=== PATIENT | female | born 1950 | race Caucasian/White ===

== ENCOUNTER → 2019-05-31 10:04 | Outpatient (CLI) | payer MEDICARE, OTHER, SELFPAY ==
--- NOTE | 2019-05-31 10:13 | DI.RAD.S_ITS ---
PROCEDURE: XR TIBIA FUBULA RT 2V INDICATIONS: pain in right lower leg, foot and right toe after fall TECHNIQUE: 2 views of the tibia and fibula were acquired. COMPARISON: None. FINDINGS: Bones: No acute fractures or dislocations. No suspicious bony lesions. Degenerative changes of the right knee are noted. Soft tissues: No suspicious soft tissue calcifications or masses. IMPRESSION: Right tibia/fibula without acute fracture or malalignment. Degenerative changes of the right knee. If there is persistent clinical concern for occult fracture given adequate mechanism of injury, consider repeat imaging in 10-14 days. Dictated by: Patrick Saleh M.D. on 05/31/2019 at 9:32 Approved by: Patrick Saleh M.D. on 05/31/2019 at 9:33
--- NOTE | 2019-05-31 10:13 | DI.RAD.S_ITS ---
PROCEDURE: XR FOOT RT MIN 3V INDICATIONS: pain in right lower leg, foot and right toe after fall TECHNIQUE: 3 views of the foot were acquired. COMPARISON: None. FINDINGS: Bones: No acute fractures or dislocations. Degenerative changes of the first toe metatarsophalangeal joint and second toe distal interphalangeal joint. Prominent retrocalcaneal spur. No suspicious bony lesions. Soft tissues: No tibiotalar joint effusion. Achilles tendon appears normal. IMPRESSION: Right foot without acute fracture or malalignment. Degenerative changes of the right first metatarsophalangeal joint and second distal interphalangeal joint. Prominent retrocalcaneal spurring. If there is persistent clinical concern for occult fracture given adequate mechanism of injury, consider repeat imaging in 10-14 days. Dictated by: Patrick Saleh M.D. on 05/31/2019 at 9:30 Approved by: Patrick Saleh M.D. on 05/31/2019 at 9:32
== END ==
PROVIDERS: PCP Physician Assistant Medical; Visit Provider Physician Assistant
DX: M79.661 Pain in right lower leg (principal); M79.671 Pain in right foot; M79.674 Pain in right toe(s); M77.31 Calcaneal spur, right foot
CPT/HCPCS: 73590; 73630

== ENCOUNTER 2023-05-21 10:07 | Emergency (ER) | payer MEDICARE, OTHER, SELFPAY ==
[2023-05-21] VITALS (10 sets, daily range): BP systolic 122–146; BP diastolic 63–81; PULSE 68–93; RESP 14–18; TEMP 36.1; O2SAT 96–100; BMI 21.6
--- NOTE | 2023-05-21 10:36 | DI.RAD.S_ITS ---
PROCEDURE: XR ABDOMEN MIN 2V INDICATIONS: constipation intermittent, better today TECHNIQUE: 2 views of the abdomen were acquired. COMPARISON: None. FINDINGS: Surgical changes and devices: None. Bowel: No pneumoperitoneum. The bowel gas pattern is non obstructed. Moderate amount of stool in colon. Soft tissues: No masses; visualized solid organ contours appear normal in size. No suspicious abdominal calcifications. Bones: No suspicious bony abnormalities. IMPRESSION: Moderate amount of stool in colon. Dictated by: Elly Wylie M.D. on 05/21/2023 at 12:01 Approved by: Elly Wylie M.D. on 05/21/2023 at 12:02
--- NOTE | 2023-05-21 13:03 | ED_ITS ---
HPI - Abdominal Pain <Mayela Dutta PA-C - Last Filed: 05/27/23 16:46> General Chief Complaint: Abdominal Pain Stated Complaint: lower abdominal pain, constipation 2 months Time Seen by Provider: 05/21/23 10:36 Mode of arrival: Ambulatory History of Present Illness HPI narrative: 72-year-old female with no reported past medical history presents to the ED with 2 months of constipation, lower abdominal pain. Patient states that over the l ast 2 months patient has not been able to have a bowel movement normally without the aid of of magnesia. Patient states that she experiences significant gas pains and is forced to use the milk of magnesia to relieve the pain and have a bowel movement. Patient states that she had a colonoscopy about 2 months ago, diagnosed with 2 polyps but otherwise unremarkable. Patient denies fever, chills, chest pain, shortness of breath, nausea, vomiting, dysuria, flank pain, lightheadedness, dizziness, syncope. Patient has tried a wide variety of laxatives including MiraLax, stool softeners, milk of magnesia. Related Data Allergies Allergy/AdvReac Type Severity Reaction Status Date / Time penicillin G [PENICILLIN G] Allergy Unknown Verified 05/21/23 10:13 Review of Systems <Mayela Dutta PA-C - Last Filed: 05/27/23 16:46> Review of Systems ROS Unobtainable: All systems reviewed & are unremarkable except as noted in HPI and below Constitutional Constitutional: Denies chills, Denies fatigue, Denies fever(s), Denies frequent falls, Denies lethargy and Denies weakness Eyes Eyes: Denies change in vision, Denies eye discharge, Denies irritation and Denies loss of vision ENT Ears, Nose, Mouth, and Throat: Denies change in voice, Denies dizziness, Denies neck pain, Denies sore throat and Denies throat swelling Cardiovascular Cardiovascular: Denies chest pain, Denies irregular heart rhythm, Denies lightheadedness, Denies palpitations, Denies dyspnea, Denies dyspnea on exertion and Denies orthopnea Respiratory Respiratory: Denies cough, Denies dyspnea, Denies dyspnea on exertion and Denies wheezing Gastrointestinal Gastrointestinal: Reports abdominal pain, Reports change in bowel habits, Reports constipation, Denies diarrhea, Denies nausea and Denies vomiting Genitourinary Genitourinary: Denies hematuria, Denies flank pain, Denies urinary incontinence and Denies urinary urgency Musculoskeletal Musculoskeletal: Denies back pain, Denies muscle weakness, Denies neck pain, Denies numbness and Denies tingling Integumentary/Breasts Skin/Breast: Denies pruritus, Denies erythema, Denies rash and Denies wounds Neurologic Neurologic: Denies behavioral changes, Denies confusion, Denies dizziness, Denies frequent falls, Denies loss of vision, Denies numbness, Denies tingling and Denies weakness Psychiatric Psychiatric: Denies anxiety, Denies behavioral changes, Denies confusion, Denies depression, Denies homicidal ideation and Denies suicidal ideation Endocrine Endocrine: Denies fatigue, Denies flushing and Denies palpitations Hematologic/Lymphatic Hematologic/Lymphatic: Denies easy bruising Allergic/Immunologic Allergic/Immunologic: Denies urticaria, Denies throat swelling and Denies wheezing Patient History <Mayela Dutta PA-C - Last Filed: 05/27/23 16:46> Social History Smoking Status: Unknown if ever smoked Smoking Status: Unknown if ever smoked alcohol intake frequency: holidays/special occasions only Substance Use Type: does not use Exam <Mayela Dutta PA-C - Last Filed: 05/27/23 16:46> Narrative Exam Narrative: Const General:?cooperative, healthy appearing and comfortable [facility] Head:?normal to inspection Ears:?hearing grossly normal bilaterally Nose:?external nose normal Face and sinus:?normal facial exam and sinuses nontender Mouth:?oral mucosae normal Throat:?posterior oropharynx normal Eyes General:?appearance normal, both eyes and all related structures Neck Neck:?normal visual inspection and no lymphadenopathy noted Resp Effort & Inspection:?normal respiratory effort Auscultation:?clear to auscultation bilaterally Cardio Rate:?regular rate Rhythm:?regular rhythm GI Abdomen is soft, nondistended. Abdomen is mildly tender to palpation in the lower abdomen. Neuro General:?patient alert, patient awake and patient oriented x3 Initial Vital Signs Initial Vital Signs: Vital Signs Temperature 97.0 F L 05/21/23 10:12 Pulse Rate 93 H 05/21/23 10:12 Respiratory Rate 14 05/21/23 10:12 Blood Pressure 146/81 H 05/21/23 10:12 Pulse Oximetry 100 05/21/23 10:12 Oxygen Delivery Method Room Air 05/21/23 10:12 <DO Melina Davidson Last Filed: 06/08/23 20:43> Initial Vital Signs Initial Vital Signs: Vital Signs Temperature 97.0 F L 05/21/23 10:12 Pulse Rate 93 H 05/21/23 10:12 Respiratory Rate 14 05/21/23 10:12 Blood Pressure 146/81 H 05/21/23 10:12 Pulse Oximetry 100 05/21/23 10:12 Oxygen Delivery Method Room Air 05/21/23 10:12 Course <Mayela Dutta PA-C - Last Filed: 05/27/23 16:46> Orders Ordered: ED Orders 05/21/23 10:36 XR abdomen min 2V Stat 05/21/23 13:29 CBC Auto Diff [Complete Blood Count AUTO DIFF] Stat CMP [Comprehensive Metabolic Panel] Stat Lipase Stat 05/21/23 14:03 CT abdomen pelvis w con Stat Vital Signs Vital signs: Vital Signs - 8 hr 05/21/23 10:12 05/21/23 11:47 05/21/23 12:00 Temperature 97.0 F L Pulse Rate 93 H 75 Respiratory Rate 14 Blood Pressure 146/81 H 122/76 Pulse Oximetry 100 98 Oxygen Delivery Method Room Air 05/21/23 12:00 05/21/23 12:15 05/21/23 12:15 Temperature Pulse Rate 76 71 Respiratory Rate Blood Pressure 134/74 Pulse Oximetry 97 96 Oxygen Delivery Method 05/21/23 12:30 05/21/23 12:31 05/21/23 12:31 Temperature Pulse Rate 73 73 Respiratory Rate Blood Pressure 135/76 Pulse Oximetry 97 96 Oxygen Delivery Method 05/21/23 12:46 05/21/23 12:46 05/21/23 13:00 Temperature Pulse Rate 82 Respiratory Rate Blood Pressure 126/71 140/77 Pulse Oximetry 97 Oxygen Delivery Method 05/21/23 13:00 05/21/23 13:30 05/21/23 13:30 Temperature Pulse Rate 73 68 Respiratory Rate Blood Pressure 146/63 H Pulse Oximetry 96 99 Oxygen Delivery Method <DO Melina Davidson Last Filed: 06/08/23 20:43> Orders Ordered: ED Orders 05/21/23 10:36 XR abdomen min 2V Stat 05/21/23 13:29 CBC Auto Diff [Complete Blood Count AUTO DIFF] Stat CMP [Comprehensive Metabolic Panel] Stat Lipase Stat 05/21/23 14:03 CT abdomen pelvis w con Stat Vital Signs Vital signs: Vital Signs - 8 hr 05/21/23 10:12 05/21/23 11:47 05/21/23 12:00 Temperature 97.0 F L Pulse Rate 93 H 75 Respiratory Rate 14 Blood Pressure 146/81 H 122/76 Pulse Oximetry 100 98 Oxygen Delivery Method Room Air 05/21/23 12:00 05/21/23 12:15 05/21/23 12:15 Temperature Pulse Rate 76 71 Respiratory Rate Blood Pressure 134/74 Pulse Oximetry 97 96 Oxygen Delivery Method 05/21/23 12:30 05/21/23 12:31 05/21/23 12:31 Temperature Pulse Rate 73 73 Respiratory Rate Blood Pressure 135/76 Pulse Oximetry 97 96 Oxygen Delivery Method 05/21/23 12:46 05/21/23 12:46 05/21/23 13:00 Temperature Pulse Rate 82 Respiratory Rate Blood Pressure 126/71 140/77 Pulse Oximetry 97 Oxygen Delivery Method 05/21/23 13:00 05/21/23 13:30 05/21/23 13:30 Temperature Pulse Rate 73 68 Respiratory Rate Blood Pressure 146/63 H Pulse Oximetry 96 99 Oxygen Delivery Method MDM - Abdominal Pain <Mayela Dutta PA-C - Last Filed: 05/27/23 16:46> Lab Data 05/21/23 13:29 05/21/23 13:29 Labs: Lab Results 05/21/23 05/21/23 Range/Units 13:29 13:29 WBC 12.6 H (4.5-11.0) X10^3/uL RBC 4.44 (4.0-5.2) X10^6/uL Hgb 13.9 (12.0-16.0) g/dL Hct 41.7 (36-46) % MCV 93.8 (80-100) fL MCH 31.2 (26-34) PG MCHC 33.3 (30-36) % RDW 13.0 (11.6-14.8) % Plt Count 392 (150-400) X10^3/uL Neut % (Auto) 81.1 H (50-75) % Lymph % (Auto) 10.7 L (25-40) % [place] % (Auto) 6.7 (3-14) % Eos % (Auto) 0.9 L (2-4) % Baso % (Auto) 0.6 (0-2) % Neut # (Auto) 27917 H (5511-4685) /uL Lymph # (Auto) 1300 (5991-7627) /uL [place] # (Auto) 800 (0-900) /uL Eos # (Auto) 100 (0-450) /uL Baso # (Auto) 100 (0-100) /uL Sodium 138 (137-145) mmol/L Potassium 4.5 (3.4-5.1) mmol/L Chloride 103 (98-107) mmol/L Carbon Dioxide 25 (22-32) mmol/L BUN 11 (7-17) mg/dL Creatinine 0.53 (0.52-1.04) mg/dL Estimated GFR > 60 (>60) mL/min BUN/Creatinine Ratio 20.8 (6-22) Glucose 86 (80-110) mg/dL Calcium 10.0 (8.4-10.2) mg/dL Total Bilirubin 0.6 (0.2-1.3) mg/dL AST 26 (14-36) IU/L ALT 16 (<35) IU/L Alkaline Phosphatase 89 (38-126) U/L Total Protein 7.9 (6.3-8.2) g/dL Albumin 4.6 (3.5-5.0) g/dL Globulin 3.3 (1.7-4.1) g/dL Albumin/Globulin Ratio 1.4 (1.0-2.8) Lipase 67 (23-300) U/L Point of care testing: Urine Dip Bedside Urine Glucose Negative Bedside Urine Bilirubin - Negative Bedside Urine Ketone ++ 40 Urine Specific [place] 1.015 Bedside Urine Occult Blood - Negative Bedside Urine pH 6.0 Bedside Urine Protein - Negative Bedside Urine Urobilinogen - Negative Bedside Urine Nitrite - Negative Bedside Urine Leukocytes - Negative Esterase MDM Narrative Medical decision making narrative: 72-year-old female with no reported past medical history presents to the ED with 2 months of constipation, lower abdominal pain. Concern for constipation versus mass versus diverticulitis versus other intra-abdominal pathology versus other. Will obtain labs, CT abdomen pelvis. Will reassess. CT abdomen pelvis shows acute diverticulitis without complications. Differential diagnosis are segmental colitis and colon mass. Radiologist recommends follow-up colonoscopy. There is some gastric antral thickening indicative of gastritis and peptic ulcer disease as differentials. Discussed findings with patient. Prescribed antibiotics. Recommend clear fluid diet for the next 2-3 days, slowly advancing to a normal diet. Recommend follow-up with PCP. ED return precautions discussed with patient. Patient verbalized understanding. Medical records reviewed: Yes <Sherrie Brandon DO - Last Filed: 06/08/23 20:43> Lab Data Labs: Lab Results 05/21/23 05/21/23 Range/Units 13:29 13:29 WBC 12.6 H (4.5-11.0) X10^3/uL RBC 4.44 (4.0-5.2) X10^6/uL Hgb 13.9 (12.0-16.0) g/dL Hct 41.7 (36-46) % MCV 93.8 (80-100) fL MCH 31.2 (26-34) PG MCHC 33.3 (30-36) % RDW 13.0 (11.6-14.8) % Plt Count 392 (150-400) X10^3/uL Neut % (Auto) 81.1 H (50-75) % Lymph % (Auto) 10.7 L (25-40) % [place] % (Auto) 6.7 (3-14) % Eos % (Auto) 0.9 L (2-4) % Baso % (Auto) 0.6 (0-2) % Neut # (Auto) 05691 H (1669-0455) /uL Lymph # (Auto) 1300 (9759-3682) /uL [place] # (Auto) 800 (0-900) /uL Eos # (Auto) 100 (0-450) /uL Baso # (Auto) 100 (0-100) /uL Sodium 138 (137-145) mmol/L Potassium 4.5 (3.4-5.1) mmol/L Chloride 103 (98-107) mmol/L Carbon Dioxide 25 (22-32) mmol/L BUN 11 (7-17) mg/dL Creatinine 0.53 (0.52-1.04) mg/dL Estimated GFR > 60 (>60) mL/min BUN/Creatinine Ratio 20.8 (6-22) Glucose 86 (80-110) mg/dL Calcium 10.0 (8.4-10.2) mg/dL Total Bilirubin 0.6 (0.2-1.3) mg/dL AST 26 (14-36) IU/L ALT 16 (<35) IU/L Alkaline Phosphatase 89 (38-126) U/L Total Protein 7.9 (6.3-8.2) g/dL Albumin 4.6 (3.5-5.0) g/dL Globulin 3.3 (1.7-4.1) g/dL Albumin/Globulin Ratio 1.4 (1.0-2.8) Lipase 67 (23-300) U/L Point of care testing: Urine Dip Bedside Urine Glucose Negative Bedside Urine Bilirubin - Negative Bedside Urine Ketone ++ 40 Urine Specific [place] 1.015 Bedside Urine Occult Blood - Negative Bedside Urine pH 6.0 Bedside Urine Protein - Negative Bedside Urine Urobilinogen - Negative Bedside Urine Nitrite - Negative Bedside Urine Leukocytes - Negative Esterase Discharge Plan Departure Patient Disposition: Home Clinical Impression: Diverticulitis Instructions: DI for Diverticulitis Activity Restrictions/Additional Instructions: You were evaluated in the ED today for abdominal pain and constipation. Your CT does show diverticulitis for which you are being prescribed antibiotics. Please complete those as prescribed. Please follow-up with your GI for a repeat colonoscopy to rule out other abnormalities such as a colon mass. Return to the ED if you have worsening symptoms, persistent vomiting, fever, chills. Stand Alone Forms: Patient Portal/API <Sherrie Brandon DO - Last Filed: 06/08/23 20:43> Cosign ED Attending Amyature Attestation: I was immediately available in the department for consultation. Documentation has been reviewed.
--- NOTE | 2023-05-21 13:15 | PC.NURSE ---
Patient hot packed for IV placement
[2023-05-21 13:37] LABS: Add Manual Diff / Slide Review NO; Basophils Absolute Auto 100 /uL (0-100); Basophils Percent Auto 0.6 % (0-2); Eosinophils Absolute Auto 100 /uL (0-450); Eosinophils Percent Auto 0.9 % (2-4); Hematocrit 41.7 % (36-46); Hemoglobin 13.9 g/dL (12.0-16.0); Lymphocytes Absolute Auto 1300 /uL (1100-4500); Lymphocytes Percent Auto 10.7 % (25-40); Mean Corpuscular HGB Conc 33.3 % (30-36); Mean Corpuscular Hemoglobin 31.2 PG (26-34); Mean Corpuscular Volume 93.8 fL (80-100); Monocytes Absolute Auto 800 /uL (0-900); Monocytes Percent Auto 6.7 % (3-14); Neutrophils Absolute Auto 10200 /uL (1500-7000); Neutrophils Percent Auto 81.1 % (50-75); Platelet Count 392 X10^3/uL (150-400); Red Blood Cell Count 4.44 X10^6/uL (4.0-5.2); White Blood Cell Count 12.6 X10^3/uL (4.5-11.0)
[2023-05-21 13:51] LABS: Alanine Aminotransferase 16 IU/L (<35); Albumin 4.6 g/dL (3.5-5.0); Albumin Globulin Ratio 1.4 (1.0-2.8); Alkaline Phosphatase 89 U/L (38-126); Aspartate Aminotransferase 26 IU/L (14-36); BUN Creatinine Ratio 20.8 (6-22); Bilirubin Total 0.6 mg/dL (0.2-1.3); Blood Urea Nitrogen 11 mg/dL (7-17); Carbon Dioxide 25 mmol/L (22-32); Chloride 103 mmol/L (98-107); Estimated Glomerular Filt Rate > 60 mL/min (>60); Globulin 3.3 g/dL (1.7-4.1); Glucose 86 mg/dL (80-110); HEMOLYSIS 37 (0-50); Lipase 67 U/L (23-300); Potassium 4.5 mmol/L (3.4-5.1); Sodium 138 mmol/L (137-145); Total Protein 7.9 g/dL (6.3-8.2)
--- NOTE | 2023-05-21 14:03 | DI.CT.S_ITS ---
PROCEDURE: CT ABDOMEN PELVIS W CON INDICATIONS: Abdominal pain, constipation TECHNIQUE: After the administration of oral and IV contrast, axial sections were acquired from the lung bases to the pubic symphysis. Coronal and sagittal reformats were performed. For radiation dose reduction, the following was used: automated exposure control, adjustment of mA and/or kV according to patient size. COMPARISON: None. FINDINGS: Image quality: Excellent. Lung bases: Unremarkable. Heart: No significant findings. ABDOMEN: Liver: Normal size. Multiple low-density nodules in liver are most likely cysts. Some lesions are too small to further characterize, therefore, indeterminate.. Gallbladder: Unremarkable. Biliary ducts: Unremarkable. Pancreas: Unremarkable. Spleen: Unremarkable. Adrenal Glands: Unremarkable. Kidneys and Ureters: Unremarkable. Stomach and Bowel: There is mild gastric antral thickening, presumably secondary to inadequate distention. Small bowel loops demonstrate normal caliber and wall thickness. There are scattered colonic diverticula. There is segmental colonic wall thickening and pericolonic stranding involving the proximal sigmoid colon. Peritoneum: Small amount of intraperitoneal fluid. No free air. Ventral Wall: No hernia. Abdominal Nodes: No retroperitoneal or mesenteric adenopathy by size criteria. Vessels: Aorta and inferior vena cava are normal in size. PELVIS: Pelvic Organs: Unremarkable. Bladder: Unremarkable. Pelvic Nodes: No enlarged lymph nodes. Miscellaneous: No inguinal hernias are seen. There is 2.4 x 3.7 x 4.4 cm oval-shaped subcutaneous cystic structure left of the midline at level of L4, most likely a sebaceous cyst. Bones: Unremarkable. IMPRESSION: 1. Colonic diverticulosis. There is segmental wall thickening and pericolonic stranding involving sigmoid colon, suggesting acute diverticulitis. Differential diagnoses are segmental colitis and colon mass. After adequate treatment of acute illness, consider a follow-up colonoscopy for further evaluation if the patient has had no recent colonoscopy. 2. Small amount of free fluid is present. No organized fluid collections to suggest abscess. 3. Gastric antral thickening is present, which may be secondary to inadequate distention. Gastritis and peptic ulcer disease are differential diagnoses. 4. Multiple hepatic hypodensities are most likely cysts. 5. A 2.4 x 3.7 x 4.4 cm subcutaneous cyst in the left lower back at level of L4, probably a sebaceous cyst. If the patient is symptomatic, the cyst can be drained under ultrasound guidance. Dictated by: Elly Wylie M.D. on 05/21/2023 at 15:47 Approved by: Elly Wylie M.D. on 05/21/2023 at 15:59
== END 2023-05-21 16:49 | disposition home or self-care (01) ==
PROVIDERS: Emergency Provider Student in an Organized Health Care Education/Training Program
DX: K57.92 Diverticulitis of intestine, part unspecified, without perforation or abscess without bleeding (principal); K59.00 Constipation, unspecified
CPT/HCPCS: 36415; 74019; 74177; 80053; 81003; 83690; 85025; 99283; 99284